=== PATIENT | male | born 1950 | race Caucasian/White ===

== ENCOUNTER 2019-09-20 16:43 | Emergency (ER) | payer MEDICARE, OTHER ==
[2019-09-20] MEDS ORDERED: MORPHINE SULFATE 4 MG INJ IM ONE (17:24)
--- NOTE | 2019-09-20 17:41 | ERPHSYRPT ---
- History of Present Illness Time Seen by Provider: 09/20/19 17:06 Patient Subjective Stated Complaint: Left wrist and left rib injury Triage Nursing Assessment: Patient ambulated back to ED and transferred self to bed. Patient A+O X 3. Patient's skin pink, warm and dry. Patient complains of falling around 1100 today tripping over an object and falling landing on his left side pushing his left hand into his left ribs. Patient complains of constant, sharp pain that is worse with movement. Swelling noted to left wrist. No visible bruising noted to left ribs. Physician History: 68 years old male presented in the ER with chief complaint of fall with left ribs/left wrist pain. Patient report he tripped over something in the barn leading to fall, tried to hold himself with the wrist and is wrist/fist pressed against the left ribs. This happened around 11 AM today and since then his having increasing pain with movements at left wrist and also pain with twisting and deep breathing and there left ribs. Describes sharp shooting pain moderate intensity and partial relief with being still. Did not hit his head. No loss of consciousness. No numbness in the fingers. Mild swelling of wrist which is gradually increasing since fall. No injury anywhere else. Occurred: this morning Reason for Fall: tripped Injuries/Pain Location: chest, upper Loss of Consciousness: no loss of consciousness Quality: sharpness Severity of Pain-Max: moderate Severity of Pain-Current: moderate Modifying Factors: Improves With: immobilization, movement Associated Symptoms (Fall): chest pain, extremity injury, No abdominal pain, No back pain, No confusion, No headache, No lightheadedness, No muscle spasms, No seizures, No shortness of breath, No slurred speech, No trouble walking, No vomiting, No vision changes Allergies/Adverse Reactions: codeine Allergy (Intermediate, Verified 09/20/19 16:50) Nausea and Vomiting nausea and vomiting tramadol Adverse Reaction (Intermediate, Verified 09/20/19 16:50) Nausea and Vomiting Home Medications: Cholecalciferol (Vitamin D3) [Vitamin D] 600 unit PO DAILY 04/18/19 [History] Metoprolol Tartrate 25 mg [Lopressor 25MG Tab] 25 mg PO BID 04/18/19 [History] Amlodipine Besylate/Benazepril [Amlodipine-Benazepril 10-40 mg] 1 tab PO DAILY 09/20/19 [History] Hx Tetanus, Diphtheria Vaccination/Date Given: No Hx Influenza Vaccination/Date Given: No Hx Pneumococcal Vaccination/Date Given: No Immunizations Up to Date: Yes Travel Risk - International Travel Have you traveled outside of the country in past 3 weeks: No - Coronavirus Screening Are you exhibiting any of the following symptoms?: No Close contact with a COVID-19 positive Pt in past 14-21 Days: No - Past Medical History Pertinent Past Medical History: Yes Neurological History: No Pertinent History ENT History: No Pertinent History Cardiac History: Hypertension Respiratory History: No Pertinent History Endocrine Medical History: No Pertinent History Musculoskeletal History: Other GI Medical History: No Pertinent History History: No Pertinent History Psycho-Social History: No Pertinent History Male Reproductive Disorders: No Pertinent History Other Medical History: polymyalgia. HTN - Past Surgical History Past Surgical History: Yes Neuro Surgical History: No Pertinent History Cardiac: No Pertinent History Respiratory: No Pertinent History Gastrointestinal: Hernia Repair Genitourinary: No Pertinent History Musculoskeletal: Orthopedic Surgery Male Surgical History: No Pertinent History Other Surgical History: Left knee arthro.,Saulo rotator cuff repair,back cyst removed near spine,ing.hernior. , while in hosp. inflammation and edema to right elbow was drained, right hand edema, Torn tendon to left achilles tendon. - Social History Smoking Status: Never smoker Exposure to second hand smoke: No Drug Use: none Patient Lives Alone: No - Nursing Vital Signs Nursing Vital Signs: Initial Vital Signs Temperature 99.1 F 09/20/19 16:55 Pulse Rate 98 H 09/20/19 16:55 Respiratory Rate 18 09/20/19 16:55 Blood Pressure 149/82 09/20/19 16:55 O2 Sat by Pulse Oximetry 98 09/20/19 16:55 Pain Scale Pain Intensity 10 - Dixon Coma Score Best Eye Response ([place]): (4) open spontaneously Best Verbal Response ([place]): (5) oriented Best Motor Response ([place]): (6) obeys commands [place] Total: 15 - Physical Exam General Appearance: no apparent distress, alert Head Injury: no evidence of injury Eye Exam: PERRL/EOMI, eyes nml inspection ENT Exam: airway nml Neck Exam: supple, trachea midline, full range of motion, normal alignment Respiratory/Chest Exam: chest tenderness (Left anterolateral mid to lower chest wall. No obvious swelling. No crepitus.), normal breath sounds, No accessory muscle use, No palpable fracture Cardiovascular Exam: normal heart sounds, regular rate/rhythm Gastrointestinal Exam: soft, normal bowel sounds, No tenderness Back Exam: normal inspection Extremity Exam: bony point tenderness (Left wrist with mild swelling, restricted range of motion. Distal neurovascular intact.), evidence of injury, pain with movement, swelling, tenderness Neurologic Exam: alert, oriented x 3, cooperative, auto suspension and steering mechanic II-XII nml as tested, normal mood/affect, nml cerebellar function, nml station & gait Skin Exam: normal color SpO2 Interpretation: normal SpO2: 98 O2 Delivery: Room Air Ordered Tests: Active Orders 24 hr Category Date Time Status RIBS UNILATERAL Stat Exams 09/20/19 Ordered WRIST (MIN 3 VIEWS) Stat Exams 09/20/19 Ordered Medication Summary Discontinued Medications Generic Name Dose Route Start Last Admin Trade Name Freq PRN Reason Stop Dose Admin Morphine Sulfate 4 mg 09/20/19 17:24 09/20/19 18:26 Morphine Sulfate 4 Mg Inj IM 09/20/19 17:25 4 mg STAT ONE Administration Morphine Sulfate Confirm 09/20/19 17:53 Morphine Sulfate 4 Mg Inj Administered 09/20/19 17:54 Dose 4 mg .ROUTE .STK-MED ONE - Progress Progress: improved, pain not gone completely, re-examined Progress Note: 09/20/19 19:22 68 years old is evaluated for fall with left wrist and rib pain. Is given pain medication, on reevaluation pain is better. X-ray wrist some questionable distal radial finding but patient is not tender in that area. Has chip fracture glipizide and patient has tenderness in that area. Ready made wrist splint is applied. Questionable nondisplaced fracture seventh and eighth rib left with no hemopneumothorax. Will give pain medication. Recommended deep breathing exercises. Follow-up with orthopedic surgery for reevaluation. Discussed signs symptoms of worsening needing return to ER which patient seems understanding. Counseled pt/family regarding: diagnosis, rad results - Departure Departure Disposition: Home Clinical Impression: Left wrist sprain Qualifiers: Encounter type: initial encounter Qualified Code(s): S63.502A - Unspecified sprain of left wrist, initial encounter Contusion of ribs Qualifiers: Encounter type: initial encounter Laterality: left Qualified Code(s): S20.212A - Contusion of left front wall of thorax, initial encounter Condition: Stable Critical Care Time: No Referrals: CHRISTY CERRATO [Primary Care Provider] - Follow Up with PCP/3 days CAIN QUEZADA NP [NON-STAFF PHY W/O PRIVILEGES] - (Tomorrow morning for reevaluation) Instructions: Common Wrist Injuries (DC), Rib Fracture (DC) Additional Instructions: Pain medications as needed. Follow-up with orthopedic surgery for reevaluation. They do deep breathing exercises. Return to ER for any worsening chest wall pain or shortness of breath. Prescriptions: Hydrocodone/Acetaminophen [[place] 7.5-325 Tablet] 1 each PO Q4-6HPRN PRN 3 Days #12 tablet MDD 4 PRN Reason: Pain
[2019-09-20] MEDS ORDERED: MORPHINE SULFATE 4 MG INJ ONE (17:53)
[2019-09-20 19:49] VITALS: BP 141/75; PULSE 95; O2SAT 95
--- NOTE | 2019-09-21 09:18 | XRAY ---
Indication: Pain following fall. Comparison: None 3 view left wrist demonstrates osteopenia, degenerative radiocarpal joint space narrowing, moderate 1st metacarpal multangular degenerative arthropathy with tiny heterotopic ossification, and tiny round anterior/posterior wrist heterotopic ossifications degenerative versus old injury. No other bony, articular, or soft tissue abnormalities.
--- NOTE | 2019-09-21 09:20 | XRAY ---
Indication: Pain following fall. Comparison: None 2 view left ribs demonstrates osteopenia, old anterior 6/7 rib fractures, mild left shoulder degenerative arthropathy, high riding humeral head commonly associated with rotator cuff tears, mild multilevel degenerative spondylosis, and scattered pulmonary/mediastinal calcified granulomas. No other bony, articular, or soft tissue abnormalities.
== END 2019-09-20 19:49 | disposition home or self-care (01) ==
LOC: ED 16:43
DX: S63.502A Unspecified sprain of left wrist, initial encounter (principal); S20.212A Contusion of left front wall of thorax, initial encounter; W01.0XXA Fall on same level from slipping, tripping and stumbling without subsequent striking against object, initial encounter; R07.89 Other chest pain; Z79.899 Other long term (current) drug therapy; I10 Essential (primary) hypertension
CPT/HCPCS: 71100; 73110; 96372; 99284; J2270; L3908

== ENCOUNTER 2022-09-02 18:45 | Emergency (ER) | payer MEDICARE, OTHER ==
[2022-09-02] MEDS ORDERED: KEFLEX 500 MG PO ONE (19:41)
[2022-09-02] MEDS ORDERED: ZOFRAN ODT 4 MG PO ONE (19:42)
[2022-09-02] MEDS ORDERED: Adacel Vial IM ONE ×2 (19:42→19:47)
[2022-09-02 19:46] VITALS: O2SAT 95
[2022-09-02] MEDS ORDERED: KEFLEX 500 MG ONE (19:47)
[2022-09-02] MEDS ORDERED: ZOFRAN ODT 4 MG ONE (19:47)
--- NOTE | 2022-09-02 19:47 | ERPHSYRPT ---
- History of Present Illness Time Seen by Provider: 09/02/22 19:44 Source: patient Exam Limitations: no limitations Physician History: Patient is a 71-year-old male presents to our ED for evaluation of laceration to the middle third of the left lower leg. Patient states he was shoveling when he hit his leg with a marla shovel. Injury occurred just prior to arrival. No other injuries reported. Patient states tetanus is not up-to-date. at bedside. states that patient is prone to infection and is requesting antibiotics. They voiced no other complaints or concerns at this time. Patient declined pain medication Portions of this note were created with voice recognition technology. There may be grammatical, spelling, punctuation or sound alike errors Timing/Duration: today Severity: moderate Modifying Factors: Improves With: nothing Associated Symptoms: denies symptoms Allergies/Adverse Reactions: codeine Allergy (Intermediate, Verified 09/02/22 19:27) Nausea and Vomiting nausea and vomiting gabapentin Allergy (Verified 09/02/22 19:27) hydroxychloroquine Allergy (Verified 09/02/22 19:27) Diarrhea tramadol Adverse Reaction (Intermediate, Verified 09/02/22 19:27) Nausea and Vomiting Home Medications: Cholecalciferol (Vitamin D3) [Vitamin D] 600 unit PO DAILY 04/18/19 [Hi story] Metoprolol Tartrate 25 mg [Lopressor 25MG Tab] 25 mg PO BID 04/18/19 [History] Amlodipine Besylate/Benazepril [Amlodipine-Benazepril 10-40 mg] 1 tab PO DAILY 09/20/19 [History] Aspirin EC 81 mg [Ecotrin 81 mg] 81 mg PO DAILY 09/02/22 [History] Atorvastatin Calcium [Lipitor] 80 mg PO DAILY 09/02/22 [History] Hydrocodone/Acetaminophen [Hydrocodone-Acetamin 10-325 mg] 0.5 each PO TID PRN 09/02/22 [History] Methylprednisolone 4 mg [Medrol 4 mg] 4 mg PO DAILY 09/02/22 [History] Hx Tetanus, Diphtheria Vaccination/Date Given: No Hx Influenza Vaccination/Date Given: No Hx Pneumococcal Vaccination/Date Given: No - Review of Systems Constitutional: No Symptoms, No Fever, No Chills Eyes: No Symptoms Ears, Nose, & Throat: No Symptoms Respiratory: No Symptoms, No Cough, No Dyspnea Cardiac: No Symptoms, No Chest Pain, No Edema, No Syncope Abdominal/Gastrointestinal: No Symptoms, No Abdominal Pain, No Nausea, No Vomiting, No Diarrhea Genitourinary Symptoms: No Symptoms, No Dysuria Musculoskeletal: No Symptoms, No Back Pain, No Neck Pain Skin: No Symptoms, No Rash Neurological: No Symptoms, No Dizziness, No Focal Weakness, No Sensory Changes Psychological: No Symptoms Endocrine: No Symptoms Hematologic/Lymphatic: No Symptoms Immunological/Allergic: No Symptoms All Other Systems: Reviewed and Negative - Past Medical History Pertinent Past Medical History: Yes Neurological History: No Pertinent History ENT History: No Pertinent History Cardiac History: Hypertension Respiratory History: No Pertinent History Endocrine Medical History: No Pertinent History Musculoskeletal History: Osteoarthritis GI Medical History: No Pertinent History History: No Pertinent History Psycho-Social History: No Pertinent History Male Reproductive Disorders: No Pertinent History Other Medical History: R TORN MENISCUS WITH SURGERY. - Past Surgical History Past Surgical History: Yes Neuro Surgical History: No Pertinent History Cardiac: No Pertinent History Respiratory: No Pertinent History Gastrointestinal: Hernia Repair Genitourinary: No Pertinent History Musculoskeletal: Orthopedic Surgery Male Surgical History: No Pertinent History Other Surgical History: Left knee arthro.,Saulo rotator cuff repair,back cyst removed near spine,ing.hernior. , while in hosp. inflammation and edema to right elbow was drained, right hand edema, Torn tendon to left achilles tendon. - Social History Smoking Status: Never smoker Exposure to second hand smoke: No Drug Use: none Patient Lives Alone: No - Physical Exam General Appearance: no apparent distress, alert Eye Exam: PERRL/EOMI, eyes nml inspection Ears, Nose, Throat Exam: normal ENT inspection, TMs normal, pharynx normal, moist mucous membranes Neck Exam: normal inspection, non-tender, supple, full range of motion Respiratory Exam: normal breath sounds, lungs clear, airway intact, No respiratory distress Cardiovascular Exam: regular rate/rhythm, normal heart sounds, normal peripheral pulses Gastrointestinal/Abdomen Exam: soft, normal bowel sounds, No tenderness, No mass Back Exam: normal inspection, normal range of motion, No CVA tenderness, No vertebral tenderness Extremity Exam: normal inspection, normal range of motion, pelvis stable, other (2 superficial lacerations at the middle third, lateral aspect of left leg. The distal laceration measures approximately 1.5 cm. It is superficial and more arnulfo to a skin tear. The proximal laceration measures approximately 2 cm. It is somewhat deeper however does not require suture repair. Good) Neurologic Exam: alert, oriented x 3, cooperative, normal mood/affect, sensation nml, No motor deficits Skin Exam: normal color, warm, dry, other (Patient denies foreign body sensation), No rash Lymphatic Exam: No adenopathy SpO2 Interpretation: normal SpO2: 95 O2 Delivery: Room Air - Course Nursing assessment & vital signs reviewed: Yes Ordered Tests: Medication Summary Generic Name Dose Route Start Last Admin Trade Name Freq PRN Reason Stop Dose Admin Diphtheria/Tetanus/Acell Pertussis 0.5 ml 09/02/22 19:42 Tdap --Diph,Pertuss(Acell),Tet Vac/Pf 0.5 Ml Vial IM 09/02/22 19:43 .ONCE ONE Ondansetron HCl 4 mg 09/02/22 19:42 Zofran 4 Mg/Udtablet Orally Disintegrating PO 09/02/22 19:43 STAT ONE Discontinued Medications Generic Name Dose Route Start Last Admin Trade Name Freq PRN Reason Stop Dose Admin Cephalexin HCl 500 mg 09/02/22 19:41 Cephalexin Mh500 Mg Capsule PO 09/02/22 19:42 STAT ONE - Progress Progress: improved Progress Note: Patient is a 71-year-old male presents to our ED for evaluation of wound to the middle third, left leg lateral aspect. Patient injured his leg with a marla shovel. There are 2 wounds present. Both wounds are relatively superficial lacerations. The distal wound appears to be a superficial skin tear. No indication for suture repair. The soft tissue is well approximated. Local wound care only. The wound was irrigated by nursing staff. Dressing applied. Patient received a dose of antibiotic. Per his request patient also received a Zofran ODT. Patient's tetanus was updated. A prescription for Zofran and Keflex was forwarded to patient's pharmacy. at bedside. They agree to follow-up with primary care doctor within 48 hours for reevaluation. Portions of this note were created with voice recognition technology. There may be grammatical, spelling, punctuation or sound alike errors Complexity of problem addressed is low acute uncomplicated Complex of data reviewed and analyzed is none. No specialized testing ordered. Diagnosis made based on history and physical examination. Risk of complication and or risk morbidity/mortality patient management is moderate. Patient received oral antibiotic, antinausea medication and a tetanus update. A prescription for antibiotic and nausea medication was forwarded to patient's pharmacy. Patient will be discharged home. at bedside. They agree to follow-up with primary care doctor within 48 hours for reevaluation. Plan of care established based on shared decision making. Vital stable. Time spent to discharge patient is approximately 10 to 15 minutes. They voiced no other complaints or concerns at this time. Portions of this note were created with voice recognition technology. There may be grammatical, spelling, punctuation or sound alike errors 09/02/22 19:50 Counseled pt/family regarding: diagnosis, need for follow-up - Departure Departure Disposition: Home Clinical Impression: Skin tear, Laceration Condition: Stable Critical Care Time: No Referrals: CHRISTY CERRATO [Primary Care Provider] - Follow up/PCP as directed Additional Instructions: Discharge/Care Plan TAMY MOSSW was seen on 09/02/22 in the Emergency Room. The patient was counseled regarding Diagnosis,Lab results, Imaging studies, need for follow up and when to return to the Emergency Room. Prescriptions given: Discharge Note I have spoken with the patient and/or caregivers. I have explained the patient's condition, diagnosis and treatment plan based on the information available to me at this time. I have answered the patient's and/or caregiver's questions and addressed any concerns. The patient and/or caregivers have as good understanding of the patient's diagnosis, condition and treatment plan as can be expected at this point. The vital signs have been stable. The patient's condition is stable and appropriate for discharge from the emergency department. The patient will pursue further outpatient evaluation with the primary care physician or other designated or consulting physician as outlined in the discharge instructions. The patient and/or caregivers are agreeable to this plan of care and follow-up instructions have been explained in detail. The patient and/or caregivers have received these instruction. The patient/and or caregivers are aware that any significant change in condition or worsening of symptoms should prompt an immediate return to this or the closest emergency department or call 911. Prescriptions: Ondansetron ODT 4 MG [Zofran Odt 4 mg] 4 mg PO Q6H PRN PRN #10 tablet PRN Reason: Vomiting Cephalexin Mh 500 mg [Keflex 500 mg] 500 mg PO TID #21 cap
[2022-09-02 19:56] VITALS: BP 142/83; PULSE 64
[2022-09-02] MEDS ORDERED: BACIGUENT PACKET ONE (19:59)
[2022-09-02] MEDS ORDERED: BACIGUENT PACKET TP ONE (20:00)
== END 2022-09-02 20:04 | disposition home or self-care (01) ==
LOC: ED 18:45
DX: S81.812A Laceration without foreign body, left lower leg, initial encounter (principal); W20.8XXA Other cause of strike by thrown, projected or falling object, initial encounter; I10 Essential (primary) hypertension; Z79.891 Long term (current) use of opiate analgesic; Z79.52 Long term (current) use of systemic steroids; Z79.899 Other long term (current) drug therapy; Z23 Encounter for immunization
CPT/HCPCS: 90471; 90715; 99282; Q0162; A9270-GY

== ENCOUNTER 2022-12-07 01:07 | Observation (INO) | payer MEDICARE, OTHER ==
--- NOTE | 2022-12-07 02:26 | ERPHSYRPT ---
- History of Present Illness Time Seen by Provider: 12/07/22 02:20 Source: patient, family, EMS Exam Limitations: no limitations Patient Subjective Stated Complaint: pt and report that he has been having severe pain to his tailbone that he reports is constant sharp pain rated 2/10 when not moving but with any movement the pain is sharp, rated 10/10, and radiates to bilat hips and down bilat legs. also reports both legs are very weak and this started approx one week ago as well. was seen at [facility] last and was told that he had 2 herniated discs (one above and one below previous surgery site). pt reports that afternoon on Wednesday he started exp eriencing swelling to left lower leg from mid harrison down and including foot and ankle. since the pain started on he has been using a walker for ambulation but has still been falling frequently due to his left knee "giving out" and both legs being very weak. he started noticing that his left foot was "flopping" on Wednesday afternoon and currently is unable to wiggle left toes or dorsiflex left foot. tonight prior to calling the ambulance the pt was standing in the bathroom when his left knee "gave out" and he fell backwards hitting his head on the drywall. pt denies pain to head or loss of consiousness. pt denies being on blood thinners of any kind. Triage Nursing Assessment: pt brought into room 4 via ambulance stretcher and transfered to ER cot via 4 staff. pt is alert and oriented times three, able to move all extremities (limited to left leg), able to speak in complete sentences, and with resp even and unlabored. pt denies palacios, sob, difficulty breathing, lightheadedness, dizziness, cp, numbness or tingling, difficulty with urination or bowel movements, change with appetite or oral intake. skin warm, dry, and intact with various abrasions, scrapes, and bruising throughout body in various stages of healing. bilat pedal pulses palpable. nonpitting edema noted to left lower leg from mid harrison down and includes foot and ankle. bilat lower ext weak a nd pt is unable to wiggle toes on left foot and unable to dorsiflex left foot. color and cap refill within normal limits to bilat feet. Physician History: pt has had back problems and surgeries and also epidurals but last one 1 month ago and today could not move left leg very wqell. he also fell striking head and neck . He has no fever, and denies blood thinners except for asa. Left LE has weakness and decreased reflexes othw normal neuro noirmal mental status. No CP, No SOBreath, No abd pain . No fever. full ROM ext without pain. Discussed risk/benefit of teleneuro, CT head, c spine, l spine, CBC, CMP, Lactate UA with pt and spouse and they wish to proceed, these were ordered, and results discussedwith pt and . and EMS served as independent sources for Hx due to pts distracting pain. Timing/Duration: today Method of Injury: fall Quality: dull, radiating Back Pain Location: lumbar spine Severity of Pain-Max: moderate Severity of Pain-Current: moderate Modifying Factors: Improves With: movement Associated Symptoms: denies symptoms, No fever, No urinary incontinence, No loss of bowel control, No problems urinating Previous symptoms: different symptoms, recently treated Allergies/Adverse Reactions: codeine Allergy (Intermediate, Verified 12/07/22 01:10) Nausea and Vomiting nausea and vomiting gabapentin Allergy (Verified 12/07/22 01:10) hydroxychloroquine Allergy (Verified 12/07/22 01:10) Diarrhea tramadol Adverse Reaction (Intermediate, Verified 12/07/22 01:10) Nausea and Vomiting Home Medications: Metoprolol Tartrate 25 mg [Lopressor 25MG Tab] 25 mg PO BID 04/18/19 [History] Amlodipine Besylate/Benazepril [Amlodipine-Benazepril 10-40 mg] 1 tab PO DAILY 09/20/19 [History] Aspirin EC 81 mg [Ecotrin 81 mg] 81 mg PO DAILY 09/02/22 [History] Atorvastatin Calcium [Lipitor] 80 mg PO HS 09/02/22 [History] Hydrocodone/Acetaminophen [Hydrocodone-Acetamin 10-325 mg] 0.5 each PO QID 09/02/22 [History] Methylprednisolone 4 mg [Medrol 4 mg] 4 mg PO DAILY 09/02/22 [History] Cyclobenzaprine HCl 5 mg PO TID PRN 12/07/22 [History] Ketorolac Trometh 10 mg Tab [TORAdol 10 MG TABLET] 10 mg PO QID PRN 12/07/22 [History] predniSONE [Prednisone] 10 mg PO DAILY 12/07/22 [History] Hx Tetanus, Diphtheria Vaccination/Date Given: Yes Hx Influenza Vaccination/Date Given: Yes Hx Pneumococcal Vaccination/Date Given: Yes Immunizations Up to Date: Yes Travel Risk - International Travel Have you traveled outside of the country in past 3 weeks: No - Coronavirus Screening Are you exhibiting any of the following symptoms?: No Close contact with a COVID-19 positive Pt in past 14-21 Days: No - Vaccine Status Have you recieved a Covid-19 vaccination: Yes Painting Contractor: Moderna - Vaccination Dates Date of 2cond Vaccination (if applicable): unknown - Review of Systems Constitutional: No Fever, No Chills Eyes: No Symptoms Ears, Nose, & Throat: No Symptoms Respiratory: No Cough, No Dyspnea Cardiac: No Chest Pain, No Edema, No Syncope Abdominal/Gastrointestinal: No Abdominal Pain, No Nausea, No Vomiting, No Diarrhea Genitourinary Symptoms: No Dysuria, No Urinary Retention Musculoskeletal: Back Pain, Fall, Injury, No Neck Pain Skin: No Rash Neurological: Headache, No Dizziness, No Focal Weakness, No Sensory Changes Psychological: No Symptoms Endocrine: No Symptoms Hematologic/Lymphatic: No Symptoms Immunological/Allergic: No Symptoms All Other Systems: Reviewed and Negative - Past Medical History Pertinent Past Medical History: Yes Neurological History: No Pertinent History ENT History: No Pertinent History Cardiac History: Hypertension Respiratory History: No Pertinent History Endocrine Medical History: No Pertinent History Musculoskeletal History: Arthritis, Osteoarthritis, Other GI Medical History: No Pertinent History History: No Pertinent History Psycho-Social History: No Pertinent History Male Reproductive Disorders: No Pertinent History Other Medical History: R TORN MENISCUS WITH SURGERY.. bilat rotator cuff repair. - Past Surgical History Past Surgical History: Yes Neuro Surgical History: No Pertinent History Cardiac: No Pertinent History Respiratory: No Pertinent History Gastrointestinal: Hernia Repair Genitourinary: No Pertinent History Musculoskeletal: Joint Replacement, Orthopedic Surgery Male Surgical History: No Pertinent History Other Surgical History: Left knee arthro.,Saulo rotator cuff repair,back cyst removed near spine,ing.hernior. , while in hosp. inflammation and edema to right elbow was drained, right hand edema, Torn tendon to left achilles tendon. Right TKA. left knee arthroscopy. back surgery x2 - Social History Smoking Status: Former smoker Exposure to second hand smoke: No Drug Use: none Patient Lives Alone: No - Nursing Vital Signs Nursing Vital Signs: Initial Vital Signs Pulse Rate 83 12/07/22 01:12 Respiratory Rate 18 12/07/22 01:12 Blood Pressure 174/93 12/07/22 01:12 O2 Sat by Pulse Oximetry 97 12/07/22 01:12 Pain Scale Pain Intensity 5 - Physical Exam General Appearance: no apparent distress, alert Eye Exam: PERRL/EOMI, eyes nml inspection Neck Exam: normal inspection, non-tender, supple, full range of motion, No meningismus, No midline tenderness Respiratory Exam: normal breath sounds, lungs clear, No respiratory distress Cardiovascular Exam: regular rate/rhythm, normal heart sounds Gastrointestinal Exam: soft, No tenderness, No mass Rectal Exam: deferred Back Exam: normal inspection, decreased range of motion, muscle spasm Extremity Exam: normal inspection, normal range of motion, No calf tenderness, No pedal edema Peripheral Pulses: carotid (R): 2+, carotid (L): 2+, femoral (R): 2+, femoral (L): 2+, dorsalis-pedis (R): 2+, dorsalis-pedis (L): 2+ Neurologic Exam: alert, oriented x 3, cooperative, client care representative II-XII nml as tested, normal mood/affect, motor deficits, sensory deficit Skin Exam: normal color, warm, dry, No rash SpO2 Interpretation: normal SpO2: 97 O2 Delivery: Room Air - Course Nursing assessment & vital signs reviewed: Yes - CT Exams Head CT Interpretation: Tele-radiologist Report, Other (mild microvascular changes) Cervical Spine CT Interpretation: Tele-radiologist Report, No Fracture, Other (ddd with indenting cord) Lumbar Spine CT Interpretation: Tele-radiologist Report, No Fracture, Other (DDD ) Ordered Tests: Active Orders 24 hr Category Date Time Status Tele-Health Consult ROUTINE Cons 12/07/22 02:17 Active CERVICAL SPINE WO CONTRAST [CT] Stat Exams 12/07/22 02:15 Completed HEAD WITHOUT CONTRAST [CT] Stat Exams 12/07/22 02:16 Completed LUMBAR SPINE W/O [CT] Stat Exams 12/07/22 02:17 Completed CBC W DIFF Stat Lab 12/07/22 02:45 Completed CMP Stat Lab 12/07/22 02:45 Completed LIPASE Stat Lab 12/07/22 02:45 Completed Lactic Acid Stat Lab 12/07/22 03:12 Completed UA W/RFX UR CULTURE Stat Lab 12/07/22 02:21 Completed Medication Summary Discontinued Medications Generic Name Dose Route Start Last Admin Trade Name Chrisq PRN Reason Stop Dose Admin Hydromorphone HCl 1 mg 12/07/22 04:04 12/07/22 04:11 Hydromorphone 1 Mg/1ml Inj IV 12/07/22 04:05 1 mg STAT ONE Administration Hydromorphone HCl Confirm 12/07/22 04:08 Hydromorphone 1 Mg/1ml Inj Administered 12/07/22 04:09 Dose 1 mg .ROUTE .STK-MED ONE Lab/Rad Data: Laboratory Result Diagrams 12/07/22 02:45 12/07/22 02:45 Laboratory Results 12/07/22 12/07/22 12/07/22 Range/Units 03:12 02:45 02:45 WBC 12.6 H (4.0-10.5) x10^3/uL RBC 4.06 L (4.1-5.6) x10^6/uL Hgb 12.0 L (12.5-18.0) g/dL Hct 37.6 L (42-50) % MCV 92.6 (78-100) fL MCH 29.6 (26-32) pg MCHC 31.9 L (32-36) g/dL RDW 14.1 H (11.5-14.0) % Plt Count 265 (150-450) x10^3/uL MPV 9.6 (7.5-11.0) fL Gran % 80.3 H (36.0-66.0) % Immature Gran % (Auto) 3.3 H (0.00-0.4) % Nucleat RBC Rel Count 0.0 (0.00-0.1) % Eos # (Auto) 0.04 (0-0.5) x10^3/uL Immature Gran # (Auto) 0.41 H (0.00-0.03) x10^3u/L Absolute Lymphs (auto) 1.21 (1.0-4.6) x10^3/uL Absolute Monos (auto) 0.78 (0.0-1.3) x10^3/uL Absolute Nucleated RBC 0.00 (0.00-0.01) x10^3u/L Lymphocytes % 9.6 L (24.0-44.0) % Monocytes % 6.2 (0.0-12.0) % Eosinophils % 0.3 (0.00-5.0) % Basophils % 0.3 (0.0-0.4) % Absolute Granulocytes 10.13 H (1.4-6.9) x10^3/uL Basophils # 0.04 (0-0.4) x10^3/uL Sodium 137 (137-145) mmol/L Potassium 3.6 (3.5-5.1) mmol/L Chloride 102 (98-107) mmol/L Carbon Dioxide 31 H (22-30) mmol/L Anion Gap 7.5 (5-15) MEQ/L BUN 22 H (9-20) mg/dL Creatinine 0.94 (0.66-1.25) mg/dL Estimated GFR > 60.0 ML/MIN Glucose 132 H (74-106) mg/dL Lactic Acid 1.8 (0.4-2.0) Calcium 9.7 (8.4-10.2) mg/dL Total Bilirubin 0.30 (0.2-1.3) mg/dL AST 37 (17-59) U/L ALT 36 (0-50) U/L Alkaline Phosphatase 78 (38-126) U/L Serum Total Protein 6.0 L (6.3-8.2) g/dL Albumin 3.7 (3.5-5.0) g/dL Lipase 85 (23-300) U/L Urine Color (Yellow) Urine Appearance (Clear) Urine pH (4.6-8.0) Ur Specific [place] (1.005-1.030) Urine Protein (Negative) Urine Glucose (UA) (Negative) mg/dL Urine Ketones (Negative) Urine Blood (Negative) Urine Nitrite (Negative) Urine Bilirubin (Negative) Urine Urobilinogen (0.2) mg/dL Ur Leukocyte Esterase (Negative) U Hyaline Cast (Auto) (0-2) /LPF Urine Microscopic RBC (0-5) /HPF Urine Microscopic WBC (0-5) /HPF Ur Epithelial Cells (None Seen) /HPF Urine Bacteria (None Seen) /HPF Urine Culture Reflexed (NO) 12/07/22 Range/Units 02:21 WBC (4.0-10.5) x10^3/uL RBC (4.1-5.6) x10^6/uL Hgb (12.5-18.0) g/dL Hct (42-50) % MCV (78-100) fL MCH (26-32) pg MCHC (32-36) g/dL RDW (11.5-14.0) % Plt Count (150-450) x10^3/uL MPV (7.5-11.0) fL Gran % (36.0-66.0) % Immature Gran % (Auto) (0.00-0.4) % Nucleat RBC Rel Count (0.00-0.1) % Eos # (Auto) (0-0.5) x10^3/uL Immature Gran # (Auto) (0.00-0.03) x10^3u/L Absolute Lymphs (auto) (1.0-4.6) x10^3/uL Absolute Monos (auto) (0.0-1.3) x10^3/uL Absolute Nucleated RBC (0.00-0.01) x10^3u/L Lymphocytes % (24.0-44.0) % Monocytes % (0.0-12.0) % Eosinophils % (0.00-5.0) % Basophils % (0.0-0.4) % Absolute Granulocytes (1.4-6.9) x10^3/uL Basophils # (0-0.4) x10^3/uL Sodium (137-145) mmol/L Potassium (3.5-5.1) mmol/L Chloride (98-107) mmol/L Carbon Dioxide (22-30) mmol/L Anion Gap (5-15) MEQ/L BUN (9-20) mg/dL Creatinine (0.66-1.25) mg/dL Estimated GFR ML/MIN Glucose (74-106) mg/dL Lactic Acid (0.4-2.0) Calcium (8.4-10.2) mg/dL Total Bilirubin (0.2-1.3) mg/dL AST (17-59) U/L ALT (0-50) U/L Alkaline Phosphatase (38-126) U/L Serum Total Protein (6.3-8.2) g/dL Albumin (3.5-5.0) g/dL Lipase (23-300) U/L Urine Color Yellow (Yellow) Urine Appearance Clear (Clear) Urine pH 7.0 (4.6-8.0) Ur Specific [place] 1.010 (1.005-1.030) Urine Protein Negative (Negative) Urine Glucose (UA) 250 A (Negative) mg/dL Urine Ketones Negative (Negative) Urine Blood Trace (Negative) Urine Nitrite Negative (Negative) Urine Bilirubin Negative (Negative) Urine Urobilinogen 0.2 (0.2) mg/dL Ur Leukocyte Esterase Negative (Negative) U Hyaline Cast (Auto) NONE SEEN (0-2) /LPF Urine Microscopic RBC 0-2 (0-5) /HPF Urine Microscopic WBC 0-2 (0-5) /HPF Ur Epithelial Cells None Seen (None Seen) /HPF Urine Bacteria None Seen (None Seen) /HPF Urine Culture Reflexed NO (NO) - Progress Progress: improved, re-examined Progress Note: 12/07/22 04:40 consulted with teleneuro for the acute left leg weakness. 12/07/22 04:58 neuro requests mri/with and without to rule out nerve compression. will request hospitalist since pt will be delayed a few hours. 12/07/22 05:[address] Nolasco. has accepted and they will redo teleneuro after the MRI today. Discussed with : Namita Will see patient in: hospital (observation) Counseled pt/family regarding: lab results, diagnosis, need for follow-up, rad results Medical Desision Making - Independent Historian Additional History obtained from: Spouse, EMS - Discussion of managment Care discussed with:: specialist Reviewed:: Test results Agreed on:: Treatment plan - Diagnostic Testing Diagnostic test were ordered, analyzed, and reviewed by me: Yes Radiological Interpretation: Teleradiologist Report - Risk of complications The pt has a mod risk of morbidity or mortality based on: Need for prescription drug management The pt has a high risk of morbidity or mortality based on: Decision regarding hospitilization or escalation of hosp level of care - Departure Departure Disposition: Observation Clinical Impression: new weakness with Lumbar DDD Condition: Good Critical Care Time: No Referrals: CHRISTY CERRATO [Primary Care Provider] - Follow up/PCP as directed
[2022-12-07 02:35] LABS: Appearance Clear (Clear); Bacteria None Seen /HPF (None Seen); Bilirubin Negative (Negative); Blood Trace (Negative); Epithelial Cells None Seen /HPF (None Seen); Glucose, Urine 250 mg/dL (Negative); Hyaline Casts NONE SEEN /LPF (0-2); Ketones Negative (Negative); Leukocyte Esterase Negative (Negative); Nitrite Negative (Negative); Protein,Urine Dip Negative (Negative); RBC 0-2 /HPF (0-5); Urobilinogen 0.2 mg/dL (0.2); WBC 0-2 /HPF (0-5)
[2022-12-07 03:05] LABS: Absolute Neutrophil Ct (ANC) 10.13 x10^3/uL (1.4-6.9); BASOPHIL % 0.3 % (0.0-0.4); Basophil (Absolute #) 0.04 x10^3/uL (0-0.4); Eosinophil % 0.3 % (0.00-5.0); Eosinophil (Absolute #) 0.04 x10^3/uL (0-0.5); Hematocrit 37.6 % (42-50); IMMATURE GRAN # 0.41 x10^3u/L (0.00-0.03); IMMATURE GRAN % 3.3 % (0.00-0.4); Lymphocyte (Absolute #) 1.21 x10^3/uL (1.0-4.6); Lymphocytes % 9.6 % (24.0-44.0); Mean Cell Volume 92.6 fL (78-100); Mean Corpuscular Hemoglobin 29.6 pg (26-32); Mean Corpuscular Hgb Concent. 31.9 g/dL (32-36); Mean Platelet Volume 9.6 fL (7.5-11.0); Monocyte (Absolute #) 0.78 x10^3/uL (0.0-1.3); Monocytes % 6.2 % (0.0-12.0); Neutrophil % 80.3 % (36.0-66.0); Platelet Count 265 x10^3/uL (150-450); Red Blood Count 4.06 x10^6/uL (4.1-5.6); Red Cell Distribution Width 14.1 % (11.5-14.0); White Blood Count 12.6 x10^3/uL (4.0-10.5)
[2022-12-07 03:07] LABS: ADD URINE CULTURE? NO (NO)
[2022-12-07 03:18] LABS: ALBUMIN 3.7 g/dL (3.5-5.0); ALKALINE PHOSPHATASE 78 U/L (38-126); ANION GAP 7.5 MEQ/L (5-15); BLOOD UREA NITROGEN 22 mg/dL (9-20); CHLORIDE 102 mmol/L (98-107); Carbon Dioxide 31 mmol/L (22-30); Creatinine 1 0.94 mg/dL (0.66-1.25); EST GLOMERULAR FILTRATION RATE > 60.0 ML/MIN; Glucose 132 mg/dL (74-106); LIPASE 85 U/L (23-300); Potassium 3.6 mmol/L (3.5-5.1); SGPT/ALT 36 U/L (0-50); SODIUM 137 mmol/L (137-145)
[2022-12-07 03:19] LABS: Calcium 9.7 mg/dL (8.4-10.2); SGOT/AST 37 U/L (17-59)
[2022-12-07] MEDS ORDERED: Hydromorphone 1 mg/ml Injection IV ONE (04:04)
[2022-12-07] MEDS ORDERED: Hydromorphone 1 mg/ml Injection ONE (04:08)
--- NOTE | 2022-12-07 04:15 | XRAY ---
CLINICAL HISTORY:new neuro deficit after trauma COMPARISON:06/12/2020. TECHNIQUE:CT scan of lumbar spine done. Axial images were obtained with reformatted coronal and sagittal images and submitted for interpretation. FINDINGS: Vertebral fixation device with disc spacer seen at L4-L5 vertebral disc levels. Degenerative changes of the lumbar spine are seen in the form of straightening of normal lumbar lordosis, anterior marginal (at multiple levels), and reduction in intervertebral disc spaces and end plate changes at multiple levels. Facetal arthropathy seen at multiple levels. Normal vertebral body height and alignment. Intact vertebral bodies and neural arches. No definite fractures could be detected. IMPRESSION: Degenerative changes the lumbar spine as described above. Advised:- MRI Lumbar spine for further evaluation. Electronically Signed by: Nilam Norman MD. (12/07/2022 03:14:26 CPHT)
--- NOTE | 2022-12-07 04:16 | XRAY ---
CLINICAL HISTORY:fell and hit head and neck COMPARISON:None TECHNIQUE:Thin axial CT of the cervical spine was performed with sagittal and coronal reconstructions without contrast FINDINGS: Alignment and osseous structures: Preserved physiological cervical lordosis The vertebral bodies are normal in height. No lytic or sclerotic bone lesion. The craniovertebral measures are unremarkable. Narrowed C4-C5, C5-C6 and to less extent C6-C7 discs with marginal osteopytic lipping of their vertebral end plates. Mild degenerative changes of the atlanto-odntoid articulation. Bilateral C4/5 and C5/6 degnerative neurocentral arthropathy with osteophytes formation seen encroaching upon the corresponding neural exit foramina. Normal disc height is noted. Level by Level analysis: C2-C3: No central canal or neuroforaminal stenosis. C3-C4: central and left paracentral posterior disc protrusion is seen indenting the cord. No neuroforaminal stenosis. C4-C5: posterior and left posterolateral disc protrusion is seen indenting the cord and encroaching upon the corresponding neural exit foramen. C5-C6: posterior and right posterolateral disc protrusion is seen indenting the cord and encroaching upon the corresponding neural exit foramen. C6-C7: No central canal or neuroforaminal stenosis. Focal posterior longitudinal ligament calcification opposite C5 level. IMPRESSION: 1. The vertebral bodies are normal in height with no fractures. 2. Cervical spondylosis. 3. C3-C4: central and left paracentral posterior disc protrusion indenting the cord. No neuroforaminal stenosis. 4. C4-C5: posterior and left posterolateral disc protrusion indenting the cord and encroaching upon the corresponding neural exit foramen with bilateral neurocentral arthropathy compromising the neural exit foramina. 5. C5-C6: posterior and right posterolateral disc protrusion is seen indenting the cord and encroaching upon the corresponding neural exit foramen with bilateral neurocentral arthropathy compromising the neural exit foramina. Electronically Signed by: Nilam Norman MD. (12/07/2022 03:15:17 [employer]MER LAW ASSOCIATE)
--- NOTE | 2022-12-07 04:18 | XRAY ---
CLINICAL HISTORY:fell and hit head has headahce COMPARISON:None TECHNIQUE:An axial non-contrast CT scan of the brain was performed from the skull base to the high parietal region. FINDINGS: There is ill-defined periventricular white matter hypodensity, suggestive of microvascular ischemic changes. The ventricular system, cortical sulci and basal cisterns are prominent and consistent with senile changes. The rest of the visualized brain parenchyma shows a normal appearance. Quinonez-white matter differentiation is maintained. No midline shifts or deformity. No intracerebral or extra axial hematoma. Normal size and configuration of the cerebral ventricles. Normal CT appearance of the posterior fossa structures namely the cerebellar hemispheres, brainstem, and cerebellar peduncles. The IACs are unremarkable. The cerebello-pontine angles are clear. The pituitary gland, the pineal gland, the optic chiasm is unremarkable. The osseous structures in the skull base are unremarkable. No definite calvarium fractures. Th scanned paranasal sinuses are clear. IMPRESSION: The above-mentioned findings are suggestive of mild microvascular ischemic changes and senile changes. The rest of non-enhanced CT study for the brain is unremarkable. Electronically Signed by: Nilam Norman MD. (12/07/2022 03:15:58 SURVEY OPERATIONS DIRECTOR)
[2022-12-07] MEDS ORDERED: NON-FORMULARY ITEM (Cyclobenzaprine Hcl [Cyclobenzaprine Hcl] 5 MG Tablet) PO PRN (09:09)
[2022-12-07] MEDS ORDERED: TORAdol 10 MG TABLET PO PRN (09:09)
[2022-12-07] MEDS: Lopressor 25MG Tab PO SCH ×2 (09:57→21:58)
[2022-12-07] MEDS: DELTASONE 10 MG PO SCH (09:57)
[2022-12-07] MEDS: Lotensin PO SCH (09:57)
[2022-12-07] MEDS: NORVASC 5 MG PO SCH (09:58)
[2022-12-07] MEDS: Cyclobenzaprine 10 MG PO PRN (09:59)
[2022-12-07] MEDS ORDERED: NON-FORMULARY ITEM (Amlodipine Besylate/Benazepril [Amlodipine-Benazepril 10-40 Mg] 1 EACH PO SCH (10:00)
[2022-12-07] MEDS ORDERED: HYDROCODONE-ACETAMIN 10-325 MG PO SCH (10:00)
[2022-12-07] MEDS: ECOTRIN 81 MG PO SCH (10:00)
--- NOTE | 2022-12-07 10:05 | PCM.HP ---
History of Present Illness - Chief Complaint Chief Complaint: NEW ONSET LEFT LEG WEAKNESS WITH LUMBAR DDD Date: 12/07/22 History of Present Illness: is a 71 year old male with hx of HTN, DDD, OA and hyperlipidemia. Pt reports that he has been having severe pain to his tailbone that he reports is constant sharp pain rated 2/10 when not moving but with any movement the pain is sharp, rated 10/10, and radiates from coccyx to bilat hips and down bilat legs (front and back). He also reports both legs are very weak and this started approx one week ago as well. He was seen at [facility] last and was told that he had 2 herniated discs (one above and one below previous surgery site). Pt reports that afternoon on Wednesday he started experiencing swelling to left lower leg from mid harrison down and including foot and ankle. Since the pain started on he has been using a walker for ambulation but has still been falling frequently due to his left knee "giving out" and both legs being very weak. He started noticing that his left foot was "flopping" on Wednesday afternoon and currently is unable to wiggle left toes or dorsiflex left foot. Last night prior to calling the ambulance the pt was standing in the bathroom when his left knee "gave out" and he fell backwards hitting his head on the wall. CT of head negative for any acute injury. Pt denies pain to head or loss of consciousness. Pt denies being on blood thinners of any kind. He has bruises all over body in various stages of healing. He denies any loss of bowel or bladder. No loss of sensation. He has an appointment tomorrow with pain management Dr. Hoffman. He had injections recently and they were helpful for his pain and then sxs worsened. MRI ordered for further evaluation. Neurology to f/u with pt later today after MRI completed. - Review of Systems Constitutional: No Fever, No Chills Eyes: No Symptoms Ears, Nose, & Throat: No Symptoms Respiratory: No Cough, No Short Of Breath Cardiac: Edema (of LLE non- pitting), No Chest Pain, No Syncope Abdominal/Gastrointestinal: Other (denies loss of bowel or bladder), No Abdominal Pain, No Nausea, No Vomiting, No Diarrhea Genitourinary Symptoms: No Dysuria Musculoskeletal: Back Pain, Fall, Other (BLLE weakness), No Neck Pain Skin: Other (bruises in various stages of healing all over body. ), No Rash Neurological: Parasthesia, Other (radicular pain down front and back of legs. ), No Dizziness, No Focal Weakness, No Sensory Changes Psychological: No Symptoms Endocrine: No Symptoms Hematologic/Lymphatic: No Symptoms Immunological/Allergic: No Symptoms Medications & Allergies Home Medications: Home Medication List Metoprolol Tartrate 25 mg [Lopressor 25MG Tab] 25 mg PO BID 04/18/19 [History Confirmed 12/07/22] Amlodipine Besylate/Benazepril [Amlodipine-Benazepril 10-40 mg] 1 tab PO DAILY 09/20/19 [History Confirmed 12/07/22] Aspirin EC 81 mg [Ecotrin 81 mg] 81 mg PO DAILY 09/02/22 [History Confirmed 12/07/22] Atorvastatin Calcium [Lipitor] 80 mg PO HS 09/02/22 [History Confirmed 12/07/22] Hydrocodone/Acetaminophen [Hydrocodone-Acetamin 10-325 mg] 0.5 each PO QID 09/02/22 [History Confirmed 12/07/22] Methylprednisolone 4 mg [Medrol 4 mg] 4 mg PO DAILY 09/02/22 [History Conf irmed 12/07/22] Cyclobenzaprine HCl 5 mg PO TID PRN 12/07/22 [History Confirmed 12/07/22] Ketorolac Trometh 10 mg Tab [TORAdol 10 MG TABLET] 10 mg PO QID PRN 12/07/22 [History Confirmed 12/07/22] predniSONE [Prednisone] 10 mg PO DAILY 12/07/22 [History Confirmed 12/07/22] Allergies/Adverse Reactions: Allergies Allergy/AdvReac Type Severity Reaction Status Date / Time codeine Allergy Intermediate Nausea and Verified 12/07/22 01:10 Vomiting gabapentin Allergy Verified 12/07/22 01:10 hydroxychloroquine Allergy Diarrhea Verified 12/07/22 01:10 tramadol AdvReac Intermediate Nausea and Verified 12/07/22 01:10 Vomiting - Past Medical History Past Medical History: Yes Neurological History: No Pertinent History ENT History: Cataracts Cardiac History: Hypertension Respiratory History: No Pertinent History Endocrine Medical History: No Pertinent History Musculoskelatal History: Arthritis, Osteoarthritis, Other GI Medical History: Hernia History: No Pertinent History Pyscho-Social History: No Pertinent History Male Reproductive Disorders: No Pertinent History Comment: R TORN MENISCUS WITH SURGERY.. bilat rotator cuff repair. - Past Surgical History Past Surgical History: Yes Neuro Surgical History: No Pertinent History Cardiac History: No Pertinent History Respiratory Surgery: No Pertinent History GI Surgical History: Hernia Repair Genitourinary Surgical Hx: No Pertinent History Musculskeletal Surgical Hx: Joint Replacement, Orthopedic Surgery Male Surgical History: No Pertinent History Other Surgical History: Left knee arthro.,Saulo rotator cuff repair,back cyst removed near spine,ing.hernior. , while in hosp. inflammation and edema to right elbow was drained, right hand edema, Torn tendon to left achilles tendon. Right TKA. left knee arthroscopy. back surgery x2 - Social History Smoking Status: Never smoker Exposure to second hand smoke: Yes Alcohol: None Drug Use: none - Physical Exam Vital Signs: Vital Signs - 24 hr Temp Pulse Resp BP BP Pulse Ox 12/07/22 08:31 97.6 F 85 16 172/89 96 12/07/22 07:45 97.6 F 85 16 172/89 96 12/07/22 07:00 80 20 149/87 95 12/07/22 06:00 79 17 154/88 93 L 12/07/22 05:52 97 12/07/22 05:00 78 18 151/87 97 12/07/22 04:30 80 16 156/92 95 12/07/22 04:00 78 18 154/92 94 L 12/07/22 03:30 152/87 97 12/07/22 03:15 76 18 163/94 96 12/07/22 03:14 76 16 163/94 97 12/07/22 02:30 89 18 150/89 98 12/07/22 02:00 80 18 137/78 97 12/07/22 01:43 82 20 133/78 96 12/07/22 01:14 98.2 F 90 18 174/93 97 12/07/22 01:12 83 18 174/93 97 General Appearance: no apparent distress, alert Neurologic Exam: alert, oriented x 3, cooperative, normal mood/affect, nml cerebellar function, nml station & gait, motor deficits (decreased strength LLE, BLLE weakness- not able to stand.), abnormal gait Eye Exam: PERRL/EOMI, eyes nml inspection Ears, Nose, Throat Exam: normal ENT inspection, TMs normal, pharynx normal, moist mucous membranes Neck Exam: normal inspection, non-tender, supple, full range of motion Respiratory Exam: normal breath sounds, lungs clear, No respiratory distress Cardiovascular Exam: regular rate/rhythm, normal heart sounds, normal peripheral pulses Gastrointestinal/Abdomen Exam: soft, normal bowel sounds, No tenderness, No mass Back Exam: normal inspection, decreased range of motion (LLE no dorsiflexion of foot, unable to wiggles toes on left foot, BLLE weakness, unable to stand. Lumbar back pain with flexion. No pain currently while sitting in he bed.), No CVA tenderness, No vertebral tenderness Extremity Exam: normal inspection, normal range of motion, pelvis stable Skin Exam: normal color, warm, dry, other (brusing in various stages of healing all over body.), No rash Lymphatic Exam: No adenopathy Results - Labs Lab/Micro Results: Lab Results-Last 24 Hours 12/07/22 12/07/22 12/07/22 Range/Units 02:21 02:45 02:45 WBC 12.6 H (4.0-10.5) x10^3/uL RBC 4.06 L (4.1-5.6) x10^6/uL Hgb 12.0 L (12.5-18.0) g/dL Hct 37.6 L (42-50) % MCV 92.6 (78-100) fL MCH 29.6 (26-32) pg MCHC 31.9 L (32-36) g/dL RDW 14.1 H (11.5-14.0) % Plt Count 265 (150-450) x10^3/uL MPV 9.6 (7.5-11.0) fL Gran % 80.3 H (36.0-66.0) % Immature Gran % (Auto) 3.3 H (0.00-0.4) % Nucleat RBC Rel Count 0.0 (0.00-0.1) % Eos # (Auto) 0.04 (0-0.5) x10^3/uL Immature Gran # (Auto) 0.41 H (0.00-0.03) x10^3u/L Absolute Lymphs (auto) 1.21 (1.0-4.6) x10^3/uL Absolute Monos (auto) 0.78 (0.0-1.3) x10^3/uL Absolute Nucleated RBC 0.00 (0.00-0.01) x10^3u/L Lymphocytes % 9.6 L (24.0-44.0) % Monocytes % 6.2 (0.0-12.0) % Eosinophils % 0.3 (0.00-5.0) % Basophils % 0.3 (0.0-0.4) % Absolute Granulocytes 10.13 H (1.4-6.9) x10^3/uL Basophils # 0.04 (0-0.4) x10^3/uL Sodium 137 (137-145) mmol/L Potassium 3.6 (3.5-5.1) mmol/L Chloride 102 (98-107) mmol/L Carbon Dioxide 31 H (22-30) mmol/L Anion Gap 7.5 (5-15) MEQ/L BUN 22 H (9-20) mg/dL Creatinine 0.94 (0.66-1.25) mg/dL Estimated GFR > 60.0 ML/MIN Glucose 132 H (74-106) mg/dL Lactic Acid (0.4-2.0) Calcium 9.7 (8.4-10.2) mg/dL Total Bilirubin 0.30 (0.2-1.3) mg/dL AST 37 (17-59) U/L ALT 36 (0-50) U/L Alkaline Phosphatase 78 (38-126) U/L Serum Total Protein 6.0 L (6.3-8.2) g/dL Albumin 3.7 (3.5-5.0) g/dL Lipase 85 (23-300) U/L Urine Color Yellow (Yellow) Urine Appearance Clear (Clear) Urine pH 7.0 (4.6-8.0) Ur Specific [place] 1.010 (1.005-1.030) Urine Protein Negative (Negative) Urine Glucose (UA) 250 A (Negative) mg/dL Urine Ketones Negative (Negative) Urine Blood Trace (Negative) Urine Nitrite Negative (Negative) Urine Bilirubin Negative (Negative) Urine Urobilinogen 0.2 (0.2) mg/dL Ur Leukocyte Esterase Negative (Negative) U Hyaline Cast (Auto) NONE SEEN (0-2) /LPF Urine Microscopic RBC 0-2 (0-5) /HPF Urine Microscopic WBC 0-2 (0-5) /HPF Ur Epithelial Cells None Seen (None Seen) /HPF Urine Bacteria None Seen (None Seen) /HPF Urine Culture Reflexed NO (NO) 12/07/22 Range/Units 03:12 WBC (4.0-10.5) x10^3/uL RBC (4.1-5.6) x10^6/uL Hgb (12.5-18.0) g/dL Hct (42-50) % MCV (78-100) fL MCH (26-32) pg MCHC (32-36) g/dL RDW (11.5-14.0) % Plt Count (150-450) x10^3/uL MPV (7.5-11.0) fL Gran % (36.0-66.0) % Immature Gran % (Auto) (0.00-0.4) % Nucleat RBC Rel Count (0.00-0.1) % Eos # (Auto) (0-0.5) x10^3/uL Immature Gran # (Auto) (0.00-0.03) x10^3u/L Absolute Lymphs (auto) (1.0-4.6) x10^3/uL Absolute Monos (auto) (0.0-1.3) x10^3/uL Absolute Nucleated RBC (0.00-0.01) x10^3u/L Lymphocytes % (24.0-44.0) % Monocytes % (0.0-12.0) % Eosinophils % (0.00-5.0) % Basophils % (0.0-0.4) % Absolute Granulocytes (1.4-6.9) x10^3/uL Basophils # (0-0.4) x10^3/uL Sodium (137-145) mmol/L Potassium (3.5-5.1) mmol/L Chloride (98-107) mmol/L Carbon Dioxide (22-30) mmol/L Anion Gap (5-15) MEQ/L BUN (9-20) mg/dL Creatinine (0.66-1.25) mg/dL Estimated GFR ML/MIN Glucose (74-106) mg/dL Lactic Acid 1.8 (0.4-2.0) Calcium (8.4-10.2) mg/dL Total Bilirubin (0.2-1.3) mg/dL AST (17-59) U/L ALT (0-50) U/L Alkaline Phosphatase (38-126) U/L Serum Total Protein (6.3-8.2) g/dL Albumin (3.5-5.0) g/dL Lipase (23-300) U/L Urine Color (Yellow) Urine Appearance (Clear) Urine pH (4.6-8.0) Ur Specific [place] (1.005-1.030) Urine Protein (Negative) Urine Glucose (UA) (Negative) mg/dL Urine Ketones (Negative) Urine Blood (Negative) Urine Nitrite (Negative) Urine Bilirubin (Negative) Urine Urobilinogen (0.2) mg/dL Ur Leukocyte Esterase (Negative) U Hyaline Cast (Auto) (0-2) /LPF Urine Microscopic RBC (0-5) /HPF Urine Microscopic WBC (0-5) /HPF Ur Epithelial Cells (None Seen) /HPF Urine Bacteria (None Seen) /HPF Urine Culture Reflexed (NO) - Radiology Impressions Radiology Exams & Impressions: Radiology Procedures Category Date Time Status CERVICAL SPINE WO CONTRAST [CT] Stat Exams 12/07/22 02:15 Completed HEAD WITHOUT CONTRAST [CT] Stat Exams 12/07/22 02:16 Completed LUMBAR SPINE W/O [CT] Stat Exams 12/07/22 02:17 Completed MRI L-SPINE W & W/O CONTRAST [MRI] Stat Exams 12/07/22 07:40 Ordered Assessment/Plan (1) Spondylosis of lumbosacral spine with radiculopathy Current Visit: Yes Status: Acute Assessment & Plan: - acute on chronic - Follows pain management and has an appointment tomorrow with Dr. Hoffman/ SUN[facility] Heath - CT done on 12/07 recommend MRI for further evaluation - Tele- neurology consult - Allergy to gabapentin, could consider Lyrica OP - Continue steriods and cyclobenzaprine - Change pain medication to percocet 5/325mg QID PRN - MRI lumbar spine pending- Neurology to discuss after results reviewed. - Previous lumbar back surgeries done at [place] and [facility] brain [facility] spine. - Would like to f/u at [place] neurosurgery if referral is required. Code(s): M47.27 - OTHER SPONDYLOSIS WITH RADICULOPATHY, LUMBOSACRAL REGION (2) Cervical spondylosis Current Visit: Yes Status: Acute Assessment & Plan: - CT cervical spine 12/07: IMPRESSION: 1. The vertebral bodies are normal in height with no fractures. 2. Cervical spondylosis. 3. C3-C4: central and left paracentral posterior disc protrusion indenting the cord. No neuroforaminal stenosis. 4. C4-C5: posterior and left posterolateral disc protrusion indenting the cord and encroaching upon the corresponding neural exit foramen with bilateral neurocentral arthropathy compromising the neural exit foramina. 5. C5-C6: posterior and right posterolateral disc protrusion is seen indenting the cord and encroaching upon the corresponding neural exit foramen with bilateral neurocentral arthropathy compromising the neural exit foramina. Code(s): M47.812 - SPONDYLOSIS W/O MYELOPATHY OR RADICULOPATHY, CERVICAL REGION (3) Hyperglycemia Current Visit: Yes Status: Acute Assessment & Plan: - most likely r/t steriods. - No HX of DM - 2 hr post prandial blood sugar to be done after lunch as pt only ate a cookie for breakfast. - A1C pending Code(s): R73.9 - HYPERGLYCEMIA, UNSPECIFIED (4) Fall Current Visit: Yes Status: Acute Assessment & Plan: - Multiple bruises from falls. - CT head 12/07: IMPRESSION: The above-mentioned findings are suggestive of mild microvascular ischemic changes and senile changes. The rest of non-enhanced CT study for the brain is unremarkable Code(s): W19.XXXA - UNSPECIFIED FALL, INITIAL ENCOUNTER (5) HTN (hypertension) Current Visit: Yes Status: Acute Assessment & Plan: - restart home meds Code(s): I10 - ESSENTIAL (PRIMARY) HYPERTENSION
[2022-12-07] MEDS ORDERED: HUMALOG SQ PRN (11:51)
[2022-12-07] MEDS: PERCOCET TABLET 5/325MG PO PRN ×2 (14:12→21:58)
--- NOTE | 2022-12-07 16:57 | XRAY ---
CLINICAL HISTORY:left leg weakness COMPARISON:06/12/2020. TECHNIQUE:Multiplanar MRI was performed through the lumbar spine in different planes with and without intravenous contrast (15 cc Dotarem). Images were sent through PACs for interpretation. FINDINGS: Straightening of lumbar spine noted, possibly due to muscle spasm. Internal fixation of L4 and L5 vertebra by rods and screws with intervening disc spacer. Spinolaminectomy of L5 vertebra. No evidence of spinal instability or lithesis. No fracture /dislocation was noted. Diffuse degenerative spinal canal stenosis. Advanced spondylodegenerative changes with exuberant vertebral end plates marginalosteophytes formation, and irregularity of the cortical margins. Degenerated all lumbar discs in the form of reduced height and T2 bright signal. Level by Level analysis: T12-L1: There is no focal disc pathology, central canal stenosis, or neural foraminal stenosis. L1-L2: Left foraminal posterior disc bulge (2.5 mm) encroaching upon the related left neural exit foramen. L2-L3: Diffuse annular disc osteophyte complex bulge (6.2 mm) with right side cranial migration, along with ligamentum flavum hypertrophy causing advanced spinal canal stenosis and bilateral nerve root impingement. L3-L4: Diffuse posterior disc bulge (4.3 mm) seen compressing thecal sac and related nerve roots. L4-L5: Left foraminal posterior disc bulge (5.7 mm) causing significant left neural foraminal narrowing. L5-S1: Mild diffuse annular disc bulge (3.7 mm) causing bilateral neural foraminal narrowing. The marrow signals of the scanned osseous structures are homogeneous. The lower dorsal spinal cord, conus medullaris, and cauda equina nerve roots are unremarkable. Paravertebral soft tissue is unremarkable. No detected areas of abnormal enhancement. IMPRESSION: Operative intervention, as described. Advanced lumbar spondylosis. Diffuse degenerative spinal canal stenosis. Multilevel disc pathology. At L2-3: 6.2 mm disc bulge with advanced spinal canal stenosis, foraminal narrowing, and radicular compression (Subacute to chronic) At L3-4: 4.3 mm disc bulge with radicular compression (Subacute to chronic). At L4-L5: Left foraminal posterior disc bulge (5.7 mm) causing significant left neural foraminal narrowing (chronic ) At L5-S1: Mild diffuse annular disc bulge (3.7 mm) causing bilateral neural foraminal narrowing (chronic) Compared to the previous study, the mild progressive course is noted. Electronically Signed by: Nilam Norman MD. (12/07/2022 15:56:22 ASSEMBLY OPERATOR)
[2022-12-07] MEDS ORDERED: ZOCOR 20MG PO SCH (22:00)
[2022-12-07] MEDS ORDERED: NON-FORMULARY ITEM (Atorvastatin Calcium [Lipitor] 80 MG Tablet) PO SCH (22:00)
[2022-12-08] MEDS: PERCOCET TABLET 5/325MG PO PRN (02:35)
[2022-12-08 04:41] LABS: Hematocrit 38.4 % (42-50); Hemoglobin 12.4 g/dL (12.5-18.0); Mean Cell Volume 91.4 fL (78-100); Mean Corpuscular Hemoglobin 29.5 pg (26-32); Mean Corpuscular Hgb Concent. 32.3 g/dL (32-36); Mean Platelet Volume 9.5 fL (7.5-11.0); Platelet Count 254 x10^3/uL (150-450); Red Cell Distribution Width 14.6 % (11.5-14.0); White Blood Count 11.9 x10^3/uL (4.0-10.5)
[2022-12-08 05:29] LABS: ALBUMIN 3.6 g/dL (3.5-5.0); ALKALINE PHOSPHATASE 78 U/L (38-126); ANION GAP 9.7 MEQ/L (5-15); BLOOD UREA NITROGEN 23 mg/dL (9-20); CHLORIDE 101 mmol/L (98-107); Calcium 9.2 mg/dL (8.4-10.2); Carbon Dioxide 28 mmol/L (22-30); Creatinine 1 0.87 mg/dL (0.66-1.25); EST GLOMERULAR FILTRATION RATE > 60.0 ML/MIN; Glucose 123 mg/dL (74-106); SGOT/AST 32 U/L (17-59); SGPT/ALT 35 U/L (0-50); SODIUM 135 mmol/L (137-145); Total Protein 5.9 g/dL (6.3-8.2)
[2022-12-08 08:54] VITALS: TEMP 98.2
[2022-12-08] MEDS: Cyclobenzaprine 10 MG PO PRN (09:30)
[2022-12-08] MEDS: Lotensin PO SCH (09:31)
[2022-12-08] MEDS: Lopressor 25MG Tab PO SCH (09:31)
[2022-12-08] MEDS: DELTASONE 10 MG PO SCH (09:31)
[2022-12-08] MEDS: NORVASC 5 MG PO SCH (09:31)
[2022-12-08] MEDS: ECOTRIN 81 MG PO SCH (09:31)
--- NOTE | 2022-12-08 12:04 | PCM.DS ---
Discharge Summary Date of Admission: 12/07/22 07:34 Date of Discharge: 12/08/22 Admitting Physician: EZEKIEL ROACH MD Consults: Consults on Case 12/07/22 02:17 Tele-Health Consult ROUTINE Primary Care Provider: CHRISTY CERRATO Allergies Allergies codeine Allergy (Intermediate, Verified 12/07/22 01:10) Nausea and Vomiting nausea and vomiting gabapentin Allergy (Verified 12/07/22 01:10) hydroxychloroquine Allergy (Verified 12/07/22 01:10) Diarrhea tramadol Adverse Reaction (Intermediate, Verified 12/07/22 01:10) Nausea and Vomiting Hospital Summary - Hospital Course Hospital Course: is a 71 year old male with hx of HTN, DDD, OA and hyperlipidemia. Pt reports that he has been having severe pain to his tailbone that he reports is constant sharp pain rated 2/10 when not moving but with any movement the pain is sharp, rated 10/10, and radiates from coccyx to bilat hips and down bilat legs (front and back). He also reports both legs are very weak and this started approx one week ago as well. He was seen at [facility] last and was told that he had 2 herniated discs (one above and one below previous surgery site). Pt reports that afternoon on Wednesday he started experiencing swelling to left lower leg from mid harrison down and including foot and ankle. Since the pain started on he has been using a walker for ambulation but has still been falling frequently due to his left knee "giving out" and both legs being very weak. He started noticing that his left foot was "flopping" on Wednesday afternoon and currently is unable to wiggle left toes or dorsiflex left foot. Last night prior to calling the ambulance the pt was standing in the bathroom when his left knee "gave out" and he fell backwards hitting his head on the wall. CT of head negative for any acute injury. Pt denies pain to head or loss of consciousness. Pt denies being on blood thinners of any kind. He has bruises all over body in various stages of healing. He denies any loss of bowel or bladder. No loss of sensation. He has an appointment today with pain management Dr. Hoffman. He had injections recently and they were helpful for his pain and then sxs worsened. MRI showing multiple levels of disc protrusions and bulges, as well as spinal stenosis, mild progressive course when compared to previous MRI. Neurology consult obtained with recommendations PT, neurosurgery referral, as well as pain management. Attempted transfer for neurosurgery but both [facility] unable to accept transfer. will see as an outpatient on Wednesday, they will contact patient with appt time. Spouse and patient notified of plan and agreeable. Patient will follow up with pain management today at 3:40pm. Will discharge on medrol dose pack. Patient also noted with what appears to be a bite on his right lower back. Will send home with hydrocortisone cream, follow up with pcp if needed. -New Diagnoses: Spondylosis lumbosacra/cervical -New Medications: Medrol dose pack/hydrocort cream -Medications Discontinued: none -Follow up: Pain management today/ Neurosurgery Wednesday -Results pending: none -Outpatient testing to order: pending neurosurgery evaluation -Latest Assessment and Plan: (1) Spondylosis of lumbosacral spine with radiculopathy Current Visit: Yes Status: Acute Assessment & Plan: - acute on chronic - Follows pain management and has an appointment tomorrow with Dr. Hoffman/ [facility] - CT done on 12/07 recommend MRI for further evaluation - Tele- neurology consult - Allergy to gabapentin, could consider Lyrica OP - Continue steriods and cyclobenzaprine - Change pain medication to percocet 5/325mg QID PRN - MRI lumbar spine pending- Neurology to discuss after results reviewed. - Previous lumbar back surgeries done at [facility] and [facility]. - Would like to f/u at [facility] neurosurgery if referral is required. Code(s): M47.27 - OTHER SPONDYLOSIS WITH RADICULOPATHY, LUMBOSACRAL REGION (2) Cervical spondylosis Current Visit: Yes Status: Acute Assessment & Plan: - CT cervical spine 12/07: IMPRESSION: 1. The vertebral bodies are normal in height with no fractures. 2. Cervical spondylosis. 3. C3-C4: central and left paracentral posterior disc protrusion indenting the cord. No neuroforaminal stenosis. 4. C4-C5: posterior and left posterolateral disc protrusion indenting the cord and encroaching upon the corresponding neural exit foramen with bilateral neurocentral arthropathy compromising the neural exit foramina. 5. C5-C6: posterior and right posterolateral disc protrusion is seen indenting the cord and encroaching upon the corresponding neural exit foramen with bilateral neurocentral arthropathy compromising the neural exit foramina. Code(s): M47.812 - SPONDYLOSIS W/O MYELOPATHY OR RADICULOPATHY, CERVICAL REGION (3) Hyperglycemia Current Visit: Yes Status: Acute Assessment & Plan: - most likely r/t steriods. - No HX of DM - 2 hr post prandial blood sugar to be done after lunch as pt only ate a cookie for breakfast. - A1C pending Code(s): R73.9 - HYPERGLYCEMIA, UNSPECIFIED (4) Fall Current Visit: Yes Status: Acute Assessment & Plan: - Multiple bruises from falls. - CT head 12/07: IMPRESSION: The above-mentioned findings are suggestive of mild microvascular ischemic changes and senile changes. The rest of non-enhanced CT study for the brain is unremarkable Code(s): W19.XXXA - UNSPECIFIED FALL, INITIAL ENCOUNTER (5) HTN (hypertension) Current Visit: Yes Status: Acute Assessment & Plan: - restart home meds Code(s): I10 - ESSENTIAL (PRIMARY) HYPERTENSION I spent greater than 45 minutes [id number] with the patient on the day of discharge performing discharge exam, discussing hospital stay and discharge instructions with patient & caregivers, preparation of discharge records, prescriptions & referral forms and addressing any questions/concerns the patient had as documented above. - Vitals & Intake/Output Vital Signs: Vital Signs Temperature 98.2 F 12/08/22 08:00 Pulse Rate 105 H 12/08/22 08:00 Respiratory Rate 20 12/08/22 08:00 Blood Pressure 141/72 12/08/22 08:00 O2 Sat by Pulse Oximetry 93 L 12/08/22 08:00 Intake & Output: Intake & Output 12/05/22 12/06/22 12/07/22 12/08/22 11:59 11:59 11:59 11:59 Intake Total 380 1440 Output Total 500 950 Balance -120 490 Weight 73.9 kg - Lab Result Diagrams: 12/08/22 04:30 12/08/22 04:30 Lab Results-Last 24 Hrs: Lab Results-Last 24 Hours 09/11/23 09/11/23 09/11/23 Range/Units 03:12 15:02 15:30 WBC (4.0-10.5) x10^3/uL RBC (4.1-5.6) x10^6/uL Hgb (12.5-18.0) g/dL Hct (42-50) % MCV (78-100) fL MCH (26-32) pg MCHC (32-36) g/dL RDW (11.5-14.0) % Plt Count (150-450) x10^3/uL MPV (7.5-11.0) fL D-Dimer 0.64 H* (0.0-0.50) mg/L Sodium (137-145) mmol/L Potassium (3.5-5.1) mmol/L Chloride (98-107) mmol/L Carbon Dioxide (22-30) mmol/L Anion Gap (5-15) MEQ/L BUN (9-20) mg/dL Creatinine (0.66-1.25) mg/dL Estimated GFR ML/MIN Glucose (74-106) mg/dL POC Glucometer 258 H (74 to 106) mg/dL Glucose 2 Hr Postprand 280 H (74-106) mg/dL Calcium (8.4-10.2) mg/dL Total Bilirubin (0.2-1.3) mg/dL AST (17-59) U/L ALT (0-50) U/L Alkaline Phosphatase (38-126) U/L Serum Total Protein (6.3-8.2) g/dL Albumin (3.5-5.0) g/dL 12/07/22 12/08/22 12/08/22 Range/Units 22:20 04:30 04:30 WBC 11.9 H (4.0-10.5) x10^3/uL RBC 4.20 (4.1-5.6) x10^6/uL Hgb 12.4 L (12.5-18.0) g/dL Hct 38.4 L (42-50) % MCV 91.4 (78-100) fL MCH 29.5 (26-32) pg MCHC 32.3 (32-36) g/dL RDW 14.6 H (11.5-14.0) % Plt Count 254 (150-450) x10^3/uL MPV 9.5 (7.5-11.0) fL D-Dimer (0.0-0.50) mg/L Sodium 135 L (137-145) mmol/L Potassium 4.0 (3.5-5.1) mmol/L Chloride 101 (98-107) mmol/L Carbon Dioxide 28 (22-30) mmol/L Anion Gap 9.7 (5-15) MEQ/L BUN 23 H (9-20) mg/dL Creatinine 0.87 (0.66-1.25) mg/dL Estimated GFR > 60.0 ML/MIN Glucose 123 H (74-106) mg/dL POC Glucometer 158 H (74 to 106) mg/dL Glucose 2 Hr Postprand (74-106) mg/dL Calcium 9.2 (8.4-10.2) mg/dL Total Bilirubin 0.50 (0.2-1.3) mg/dL AST 32 (17-59) U/L ALT 35 (0-50) U/L Alkaline Phosphatase 78 (38-126) U/L Serum Total Protein 5.9 L (6.3-8.2) g/dL Albumin 3.6 (3.5-5.0) g/dL 12/08/22 12/08/22 Range/Units 06:27 11:48 WBC (4.0-10.5) x10^3/uL RBC (4.1-5.6) x10^6/uL Hgb (12.5-18.0) g/dL Hct (42-50) % MCV (78-100) fL MCH (26-32) pg MCHC (32-36) g/dL RDW (11.5-14.0) % Plt Count (150-450) x10^3/uL MPV (7.5-11.0) fL D-Dimer (0.0-0.50) mg/L Sodium (137-145) mmol/L Potassium (3.5-5.1) mmol/L Chloride (98-107) mmol/L Carbon Dioxide (22-30) mmol/L Anion Gap (5-15) MEQ/L BUN (9-20) mg/dL Creatinine (0.66-1.25) mg/dL Estimated GFR ML/MIN Glucose (74-106) mg/dL POC Glucometer 117 H 155 H (74 to 106) mg/dL Glucose 2 Hr Postprand (74-106) mg/dL Calcium (8.4-10.2) mg/dL Total Bilirubin (0.2-1.3) mg/dL AST (17-59) U/L ALT (0-50) U/L Alkaline Phosphatase (38-126) U/L Serum Total Protein (6.3-8.2) g/dL Albumin (3.5-5.0) g/dL Micro Results-Entire Visit: Accuchecks Date 12/08/22 Date 12/07/22 Date 12/07/22 Date 12/07/22 Time 06:36 Time 15:03 Time 15:03 Time 15:03 - Radiology Exams Ordered Rad Exams-Entire Visit: Radiology Procedures Category Date Time Status CERVICAL SPINE WO CONTRAST [CT] Stat Exams 12/07/22 02:15 Completed HEAD WITHOUT CONTRAST [CT] Stat Exams 12/07/22 02:16 Completed LUMBAR SPINE W/O [CT] Stat Exams 12/07/22 02:17 Completed MRI L-SPINE W & W/O CONTRAST [MRI] Stat Exams 12/07/22 07:40 Completed - Procedures and Test Procedures and Tests throughout Hospitalization: Therapy Orders & Screens 12/07/22 18:08 PT Eval & Treat (MD Order) ONCE Reason for Eval:: weakness BLLE, Will need Wheelchair for home use Diagnosis: NEW ONSET LEFT LEG WEAKNESS WITH LUMBAR DDD Discharge Exam General Appearance: mild distress Neurologic Exam: alert, oriented x 3, cooperative Eye Exam: PERRL Ears, Nose, Throat Exam: normal ENT inspection Neck Exam: normal inspection Respiratory Exam: normal breath sounds, lungs clear Cardiovascular Exam: regular rate/rhythm, normal heart sounds Gastrointestinal/Abdomen Exam: soft, normal bowel sounds Male Genitalia Exam: deferred Rectal Exam: deferred Back Exam: vertebral tenderness, decreased range of motion, other (BLE weakness 3/5 to RLE 2/5 LLE) Extremity Exam: limited range of motion Skin Exam: other (Right lower back dime sized lesion) Wound Assessment: Skin/Wound Assessment Wound/Incision Assessment Start: 12/07/22 08:42 Text: Status: Active Freq: Q6H Protocol: Document 12/08/22 08:00 RF (Rec: 12/08/22 08:47 RF [id number]) Wound/Incision Assessment Left Lower Calf Wound Assessment Shift Assessment Wound Type Abrasion Dressing Status Dry & Intact Drainage Amount None Drainage Description Serosanguineous Drainage Odor None/Absent Primary Dressing Non-Adherent Gauze Pads Secondary Dressing TEGADERM Wound Photo Photo Taken Yes Date: 12/07/22 Time: 09:30 Comment: PICTURES PLACED IN CHART. Final Diagnosis/Problem List - Final Discharge Diagnosis/Problem (1) Spondylosis of lumbosacral spine with radiculopathy Current Visit: Yes Status: Chronic Code(s): M47.27 - OTHER SPONDYLOSIS WITH RADICULOPATHY, LUMBOSACRAL REGION (2) Cervical spondylosis Current Visit: Yes Status: Chronic Code(s): M47.812 - SPONDYLOSIS W/O MYELOPATHY OR RADICULOPATHY, CERVICAL REGION (3) Bilateral leg weakness Current Visit: Yes Status: Acute Code(s): R29.898 - OTH SYMPTOMS AND SIGNS INVOLVING THE MUSCULOSKELETAL SYSTEM (4) Fall Current Visit: Yes Status: Acute Code(s): W19.XXXA - UNSPECIFIED FALL, INITIAL ENCOUNTER (5) HTN (hypertension) Current Visit: Yes Status: Chronic Code(s): I10 - ESSENTIAL (PRIMARY) HYPERTENSION (6) Hyperglycemia Current Visit: Yes Status: Resolved Code(s): R73.9 - HYPERGLYCEMIA, UNSPECIFIED - Discharge Condition: Fair Prescriptions: New Hydrocortisone 1% Cream [Cortisone 1% Cream] 1.5 gm TP BID 7 Days #1 unit Methylprednisolone Packet [Medrol Dosepack] 4 mg PO UD 5 Days #1 packet Continue Metoprolol Tartrate 25 mg [Lopressor 25MG Tab] 25 mg PO BID Amlodipine Besylate/Benazepril [Amlodipine-Benazepril 10-40 mg] 1 tab PO DAILY Atorvastatin Calcium [Lipitor] 80 mg PO HS Aspirin EC 81 mg [Ecotrin 81 mg] 81 mg PO DAILY Hydrocodone/Acetaminophen [Hydrocodone-Acetamin 10-325 mg] 0.5 each PO QID Ketorolac Trometh 10 mg Tab [TORAdol 10 MG TABLET] 10 mg PO QID PRN PRN Reason: Pain Cyclobenzaprine HCl 5 mg PO TID PRN PRN Reason: Pain Discontinued Methylprednisolone 4 mg [Medrol 4 mg] 4 mg PO DAILY predniSONE [Prednisone] 10 mg PO DAILY Additional Instructions: AND [facility] WILL CONTACT YOU WITH AN APPOINTMENT TIME- SHOULD BE FOR Wednesday12/14/22- IF YOU DO NOT HEAR FROM THEM BY THIS WEDNESDAY CALL TO CHECK ON THAT APPOINTMENT. [facility] HAS BEEN SET UP. THEY WILL CONTACT YOU TO ARRANGE A TIME TO COME SEE YOU. IF YOU NEED ANYTHING BEFORE THEIR FIRST VISIT- YOU CAN REACH THEM AT [phone] Follow up with: CHRISTY CERRATO [Primary Care Provider] - 12/15/22 3:45 pm
[2022-12-08 12:08] VITALS: BP 111/62; PULSE 68; RESP 18; O2SAT 96
[2022-12-11] MEDS ORDERED: DELTASONE 10 MG PO SCH (10:00)
[2022-12-16] MEDS ORDERED: DELTASONE 10 MG PO SCH (10:00)
[2022-12-21] MEDS ORDERED: MEDROL 4 MG PO SCH (10:00)
== END 2022-12-08 14:54 | disposition home health service (06) ==
LOC: ED 01:07 → MED SURG 07:34
PROVIDERS: ADMIT Internal Medicine; ATTEND Internal Medicine
DX: M47.27 Other spondylosis with radiculopathy, lumbosacral region (principal); M47.812 Spondylosis without myelopathy or radiculopathy, cervical region; R73.9 Hyperglycemia, unspecified; W19.XXXA Unspecified fall, initial encounter; I10 Essential (primary) hypertension; E78.5 Hyperlipidemia, unspecified; R60.0 Localized edema; M54.50 Low back pain, unspecified; Z79.899 Other long term (current) drug therapy; Z20.828 Contact with and (suspected) exposure to other viral communicable diseases
CPT/HCPCS: 36000; 36415; 70450; 72125; 72131; 72158; 80053; 81001; 82947; 82950; 83036; 83605; 83690; 85025; 85027; 85379; 97161; 99285; Q3014; 93268; J1170; J1817; A9270-GY; G0378